=== PATIENT | male | born 1960 | race African-American/Black ===

== ENCOUNTER 2018-11-04 13:57 | Inpatient (IN) | payer OTHER ==
[2018-11-04 17:34] VITALS: BMI 22.4
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
[2018-11-04] MEDS ORDERED: ACETAMINOPHEN 325 MG TABLET (FP) PO PRN (19:56)
[2018-11-04] MEDS ORDERED: hydrOXYzine PAMOATE 50 MG CAPSULE (FP) PO PRN (19:56)
[2018-11-04] MEDS ORDERED: P-EPHED 60MG/TRIPROLIDI 2.5MG TABLET PO PRN (19:56)
[2018-11-04] MEDS ORDERED: MAGNESIUM CITRATE 300 ML BOTTLE PO PRN (19:56)
[2018-11-04] MEDS ORDERED: ONDANSETRON *ODT* 4 MG TABLET SL PRN (19:56)
[2018-11-04] MEDS ORDERED: guaiFENesin/D-METHORPHAN HB 10 ML UNIT-DOSE CUPS PO PRN (19:56)
[2018-11-04] MEDS ORDERED: LOPERAMIDE HCL 2 MG CAPSULE PO PRN (19:56)
[2018-11-04] MEDS ORDERED: chlordiazePOXIDE HCL 25 MG CAPSULE PO PRN (19:56)
[2018-11-04] MEDS ORDERED: NICOTINE POLACRILEX 2 MG GUM BC PRN (19:56)
[2018-11-04] MEDS ORDERED: MAGNESIUM HYDROX 2400MG/30ML ORAL SUSPENSION 30 ML CUP PO PRN (19:56)
[2018-11-04] MEDS ORDERED: MENTHOL/PHENOL 1 EACH UD MM PRN (19:56)
[2018-11-04] MEDS ORDERED: MAG HYDROX/AL HYDROX/SIMETH 30 ML UNIT-DOSE CUP PO PRN (19:56)
[2018-11-04] MEDS ORDERED: PATIENT'S OWN MEDICATION (NON-FORMULARY) (Gabapentin [Neurontin] 600 MG) PO SCH (20:00)
[2018-11-04] MEDS ORDERED: PATIENT'S OWN MEDICATION (NON-FORMULARY) (Ranitidine Hcl [Ranitidine Hcl] 150 MG) PO SCH (22:00)
[2018-11-04] MEDS: GABAPENTIN 300 MG CAPSULE (FP) PO SCH (23:00)
[2018-11-04] MEDS: RANITIDINE HCL 150 MG TABLET (FP) PO SCH (23:00)
[2018-11-04] MEDS: chlordiazePOXIDE HCL 25 MG CAPSULE PO SCH (23:00)
[2018-11-04] MEDS: THIAMINE HCL 100 MG TABLET (FP) PO SCH (23:01)
[2018-11-05] MEDS: chlordiazePOXIDE HCL 25 MG CAPSULE PO SCH ×4 (05:59→22:16)
[2018-11-05] MEDS: GABAPENTIN 300 MG CAPSULE (FP) PO SCH ×3 (06:22→22:16)
[2018-11-05] MEDS: metFORMIN HCL 500 MG TABLET (FP) PO SCH ×2 (06:23→17:52)
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
[2018-11-05] MEDS ORDERED: PATIENT'S OWN MEDICATION (NON-FORMULARY) (Ramipril [Ramipril] 10 MG) PO SCH (10:00)
[2018-11-05 10:05] LABS: HEMATOCRIT 33.8 % (35.4-49); HEMOGLOBIN 10.7 GM/dL (11.7-16.9); MCH 33.7 pg (25.7-33.7); MCHC 31.6 g/dl (32.0-35.9); MEAN CELL VOLUME 106.4 fl (80-96); MEAN PLT VOLUME 10.8 fl (7.5-11.1); PLATELET COUNT 141 K/MM3 (134-434); RBC 3.17 M/mm3 (4.00-5.60); RDW 13.9 % (11.9-15.9); WHITE BLOOD COUNT 6.9 K/mm3 (4.0-10.0)
[2018-11-05] MEDS: CITALOPRAM HYDROBROMIDE 20 MG TABLET (FP) PO SCH (10:28)
[2018-11-05] MEDS: RANITIDINE HCL 150 MG TABLET (FP) PO SCH ×2 (10:28→22:16)
[2018-11-05] MEDS: ASPIRIN 81 MG CHEWABLE TABLETS PO SCH (10:28)
[2018-11-05] MEDS: PRENATAL VITAMINS W/ FOLIC ACID TABLET (FP) PO SCH (10:30)
[2018-11-05] MEDS: NICOTINE 14 MG/24 HOURS TOPICAL PATCH TD SCH (10:31)
[2018-11-05 11:07] LABS: ALBUMIN 2.6 g/dl (3.4-5.0); ALK PHOS 502 U/L (45-117); ANION GAP 10 MMOL/L (8-16); BILIRUBIN,TOTAL 5.7 mg/dL (0.2-1); BLOOD UREA NITROGEN 15 mg/dL (7-18); CALCIUM 8.4 mg/dL (8.5-10.1); CHLORIDE 100 mmol/L (98-107); CO2 26 mmol/L (21-32); CREATININE 1.1 mg/dL (0.55-1.3); GLUCOSE,RANDOM 119 mg/dL (74-106); POTASSIUM 4.2 mmol/L (3.5-5.1); SGOT/AST 425 U/L (15-37); SGPT/ALT 255 U/L (13-61); SODIUM 136 mmol/L (136-145); TOT PROT 8.7 g/dl (6.4-8.2)
[2018-11-05] MEDS: RAMIPRIL 5 MG CAPSULE (FP) PO SCH (11:20)
--- NOTE | 2018-11-05 11:22 | PN ---
S CIWA - CIWA Score Nausea/Vomitin-No Nausea/No Vomiting Muscle Tremors: 4-Moderate,w/Arms Extend Anxiety: 3 Agitation: 4-Moderately Restless Paroxysmal Sweats: 3 Orientation: 0-Oriented Tacttile Disturbances: 0-None Auditory Disturbances: 0-None Visual Disturbances: 0-None Headache: 1-Very Mild CIWA-Ar Total Score: 15 BHS Progress Note (SOAP) Subjective: nausea sweats chills last night body aches some shakes Objective: 11/05/18 11:20 Vital Signs Temperature 100.0 F H 11/05/18 09:07 Pulse Rate 96 H 11/05/18 09:07 Respiratory Rate 16 11/05/18 09:07 Blood Pressure 134/72 11/05/18 09:07 O2 Sat by Pulse Oximetry (%) Laboratory Tests 11/04/18 11/05/18 11/05/18 17:29 06:02 07:00 WBC 6.9 RBC 3.17 L Hgb 10.7 L Hct 33.8 L MCV 106.4 H MCH 33.7 MCHC 31.6 L RDW 13.9 Plt Count 141 MPV 10.8 Sodium Potassium Chloride Carbon Dioxide Anion Gap BUN Creatinine Creat Clearance w eGFR POC Glucometer 175 164 Random Glucose Calcium Total Bilirubin AST ALT Alkaline Phosphatase Total Protein Albumin 11/05/18 07:00 WBC RBC Hgb Hct MCV MCH MCHC RDW Plt Count MPV Sodium 136 Potassium 4.2 Chloride 100 Carbon Dioxide 26 Anion Gap 10 BUN 15 Creatinine 1.1 Creat Clearance w eGFR > 60 POC Glucometer Random Glucose 119 H Calcium 8.4 L Total Bilirubin 5.7 H AST 425 H ALT 255 H Alkaline Phosphatase 502 H Total Protein 8.7 H Albumin 2.6 L labs noted elevated ast/alt; tylenol d/c repeat labs for Friday ordered Assessment: 11/05/18 11:21 withdrawal sx Plan: continue detox increase fluids tylenol d/c labs repeated ordered jeff lima
[2018-11-05] MEDS: MELATONIN 5 MG TABLETS PO PRN (22:16)
[2018-11-05] MEDS: QUEtiapine FUMARATE 50 MG TABLET PO SCH (22:16)
[2018-11-05] MEDS: THIAMINE HCL 100 MG TABLET (FP) PO SCH (22:16)
[2018-11-05] MEDS: IBUPROFEN 400 MG TABLET (FP) PO PRN (22:18)
[2018-11-06] MEDS: chlordiazePOXIDE HCL 25 MG CAPSULE PO SCH ×3 (05:26→18:36)
[2018-11-06] MEDS: GABAPENTIN 300 MG CAPSULE (FP) PO SCH ×3 (05:26→22:12)
[2018-11-06] MEDS: metFORMIN HCL 500 MG TABLET (FP) PO SCH ×2 (07:21→18:36)
[2018-11-06] MEDS: PRENATAL VITAMINS W/ FOLIC ACID TABLET (FP) PO SCH (10:13)
[2018-11-06] MEDS: RAMIPRIL 5 MG CAPSULE (FP) PO SCH (10:14)
[2018-11-06] MEDS: RANITIDINE HCL 150 MG TABLET (FP) PO SCH ×2 (10:14→22:12)
[2018-11-06] MEDS: NICOTINE 14 MG/24 HOURS TOPICAL PATCH TD SCH (10:14)
[2018-11-06] MEDS: CITALOPRAM HYDROBROMIDE 20 MG TABLET (FP) PO SCH (10:14)
[2018-11-06] MEDS: ASPIRIN 81 MG CHEWABLE TABLETS PO SCH (10:14)
--- NOTE | 2018-11-06 12:27 | PN ---
[facility] CIWA - CIWA Score Nausea/Vomitin-No Nausea/No Vomiting Muscle Tremors: 3 Anxiety: 3 Agitation: 3 Paroxysmal Sweats: 3 Orientation: 0-Oriented Tacttile Disturbances: 0-None Auditory Disturbances: 0-None Visual Disturbances: 0-None Headache: 0-None Present CIWA-Ar Total Score: 12 BHS Progress Note (SOAP) Subjective: sweats irritable muscle achy Objective: 11/06/18 12:26 Vital Signs Temperature 99.3 F 11/06/18 11:42 Pulse Rate 93 H 11/06/18 11:42 Respiratory Rate 18 11/06/18 11:42 Blood Pressure 132/72 11/06/18 11:42 O2 Sat by Pulse Oximetry (%) Laboratory Tests 11/04/18 11/05/18 11/05/18 17:29 06:02 07:00 WBC RBC Hgb Hct MCV MCH MCHC RDW Plt Count MPV Sodium Potassium Chloride Carbon Dioxide Anion Gap BUN Creatinine Creat Clearance w eGFR POC Glucometer 175 164 Random Glucose Calcium Total Bilirubin AST ALT Alkaline Phosphatase Total Protein Albumin RPR Titer HIV 1&2 Antibody Screen Negative HIV P24 Antigen Negative 11/05/18 11/05/18 11/05/18 07:00 07:00 07:00 WBC 6.9 RBC 3.17 L Hgb 10.7 L Hct 33.8 L MCV 106.4 H MCH 33.7 MCHC 31.6 L RDW 13.9 Plt Count 141 MPV 10.8 Sodium 136 Potassium 4.2 Chloride 100 Carbon Dioxide 26 Anion Gap 10 BUN 15 Creatinine 1.1 Creat Clearance w eGFR > 60 POC Glucometer Random Glucose 119 H Calcium 8.4 L Total Bilirubin 5.7 H AST 425 H ALT 255 H Alkaline Phosphatase 502 H Total Protein 8.7 H Albumin 2.6 L RPR Titer Nonreactive HIV 1&2 Antibody Screen HIV P24 Antigen 11/05/18 11/06/18 16:59 05:25 WBC RBC Hgb Hct MCV MCH MCHC RDW Plt Count MPV Sodium Potassium Chloride Carbon Dioxide Anion Gap BUN Creatinine Creat Clearance w eGFR POC Glucometer 197 132 Random Glucose Calcium Total Bilirubin AST ALT Alkaline Phosphatase Total Protein Albumin RPR Titer HIV 1&2 Antibody Screen HIV P24 Antigen aaox3 ambulating no acute distress Assessment: 11/06/18 12:26 withdrawal sx Plan: continue detox increase fluids
[2018-11-06] MEDS: chlordiazePOXIDE 5 MG CAPSULE PO SCH (22:11)
[2018-11-06] MEDS: QUEtiapine FUMARATE 50 MG TABLET PO SCH (22:11)
[2018-11-06] MEDS: THIAMINE HCL 100 MG TABLET (FP) PO SCH (22:13)
[2018-11-07] MEDS: GABAPENTIN 300 MG CAPSULE (FP) PO SCH ×3 (05:44→22:22)
[2018-11-07] MEDS: chlordiazePOXIDE 5 MG CAPSULE PO SCH ×3 (05:44→17:18)
[2018-11-07] MEDS: metFORMIN HCL 500 MG TABLET (FP) PO SCH ×2 (07:00→17:18)
[2018-11-07] MEDS: IBUPROFEN 400 MG TABLET (FP) PO PRN (09:00)
[2018-11-07] MEDS: RANITIDINE HCL 150 MG TABLET (FP) PO SCH ×2 (10:25→22:22)
[2018-11-07] MEDS: ASPIRIN 81 MG CHEWABLE TABLETS PO SCH (10:25)
[2018-11-07] MEDS: RAMIPRIL 5 MG CAPSULE (FP) PO SCH (10:25)
[2018-11-07] MEDS: CITALOPRAM HYDROBROMIDE 20 MG TABLET (FP) PO SCH (10:27)
[2018-11-07] MEDS: PRENATAL VITAMINS W/ FOLIC ACID TABLET (FP) PO SCH (10:27)
[2018-11-07] MEDS: NICOTINE 14 MG/24 HOURS TOPICAL PATCH TD SCH (10:28)
[2018-11-07 11:53] LABS: ALBUMIN 1.9 g/dl (3.4-5.0); ALK PHOS 498 U/L (45-117); ANION GAP 8 MMOL/L (8-16); BILIRUBIN,TOTAL 4.7 mg/dL (0.2-1); BLOOD UREA NITROGEN 13 mg/dL (7-18); CALCIUM 7.8 mg/dL (8.5-10.1); CHLORIDE 102 mmol/L (98-107); CO2 26 mmol/L (21-32); CREATININE 1.1 mg/dL (0.55-1.3); GLUCOSE,RANDOM 218 mg/dL (74-106); SGOT/AST 399 U/L (15-37); SGPT/ALT 292 U/L (13-61); SODIUM 136 mmol/L (136-145)
--- NOTE | 2018-11-07 14:10 | PN ---
BHS Progress Note (SOAP) Subjective: Interrupted sleep, fatigue, tremors Objective: 11/07/18 14:09 Vital Signs 11/07/18 11/07/18 07:26 09:31 Temperature 99.3 F 101.5 F H Pulse Rate 110 H 116 H Respiratory 20 16 Rate Blood Pressure 139/72 125/74 Laboratory Last Values WBC 6.9 K/mm3 (4.0-10.0) 11/05/18 07:00 RBC 3.17 M/mm3 (4.00-5.60) L 11/05/18 07:00 Hgb 10.7 GM/dL (11.7-16.9) L 11/05/18 07:00 Hct 33.8 % (35.4-49) L 11/05/18 07:00 MCV 106.4 fl (80-96) H 11/05/18 07:00 MCH 33.7 pg (25.7-33.7) 11/05/18 07:00 MCHC 31.6 g/dl (32.0-35.9) L 11/05/18 07:00 RDW 13.9 % (11.9-15.9) 11/05/18 07:00 Plt Count 141 K/MM3 (134-434) 11/05/18 07:00 MPV 10.8 fl (7.5-11.1) 11/05/18 07:00 Sodium 136 mmol/L (136-145) 11/07/18 07:50 Potassium 4.0 mmol/L (3.5-5.1) 11/07/18 07:50 Chloride 102 mmol/L (98-107) 11/07/18 07:50 Carbon Dioxide 26 mmol/L (21-32) 11/07/18 07:50 Anion Gap 8 MMOL/L (8-16) 11/07/18 07:50 BUN 13 mg/dL (7-18) 11/07/18 07:50 Creatinine 1.1 mg/dL (0.55-1.3) 11/07/18 07:50 Creat Clearance w eGFR > 60 (>60) 11/07/18 07:50 POC Glucometer 163 UNITS (80-120) 11/07/18 05:43 Random Glucose 218 mg/dL (74-106) H 11/07/18 07:50 Calcium 7.8 mg/dL (8.5-10.1) L 11/07/18 07:50 Total Bilirubin 4.7 mg/dL (0.2-1) H 11/07/18 07:50 AST 399 U/L (15-37) H 11/07/18 07:50 ALT 292 U/L (13-61) H 11/07/18 07:50 Alkaline Phosphatase 498 U/L (45-117) H 11/07/18 07:50 Total Protein 7.0 g/dl (6.4-8.2) 11/07/18 07:50 Albumin 1.9 g/dl (3.4-5.0) L 11/07/18 07:50 RPR Titer Nonreactive (NONREACTIVE) 11/05/18 07:00 HIV 1&2 Antibody Screen Negative 11/05/18 07:00 HIV P24 Antigen Negative 11/05/18 07:00 Labs noted-elevated liver enzymes r/t hep C status Assessment: 11/07/18 14:10 Withdrawal sx Plan: Continue detox
[2018-11-07] MEDS: QUEtiapine FUMARATE 50 MG TABLET PO SCH (22:22)
[2018-11-07] MEDS: THIAMINE HCL 100 MG TABLET (FP) PO SCH (22:22)
[2018-11-07] MEDS: chlordiazePOXIDE HCL 10 MG CAPSULE PO SCH (22:22)
[2018-11-07] MEDS: MELATONIN 5 MG TABLETS PO PRN (22:22)
[2018-11-08] MEDS: GABAPENTIN 300 MG CAPSULE (FP) PO SCH (06:26)
[2018-11-08] MEDS: chlordiazePOXIDE HCL 10 MG CAPSULE PO SCH ×2 (06:27→10:12)
[2018-11-08] MEDS: IBUPROFEN 400 MG TABLET (FP) PO PRN (06:27)
[2018-11-08] MEDS: metFORMIN HCL 500 MG TABLET (FP) PO SCH (06:27)
[2018-11-08 09:59] VITALS: BP 107/57; PULSE 119; TEMP 97.1
[2018-11-08] MEDS: PRENATAL VITAMINS W/ FOLIC ACID TABLET (FP) PO SCH (10:41)
[2018-11-08] MEDS: ASPIRIN 81 MG CHEWABLE TABLETS PO SCH (10:41)
[2018-11-08] MEDS: CITALOPRAM HYDROBROMIDE 20 MG TABLET (FP) PO SCH (10:41)
[2018-11-08] MEDS: RAMIPRIL 5 MG CAPSULE (FP) PO SCH (10:41)
[2018-11-08] MEDS: RANITIDINE HCL 150 MG TABLET (FP) PO SCH (10:41)
[2018-11-08] MEDS: NICOTINE 14 MG/24 HOURS TOPICAL PATCH TD SCH (10:42)
--- NOTE | 2018-11-08 16:36 | DS ---
[facility] Detox Discharge Summary Admission Date: 11/04/18 Discharge Date: 11/08/18 - History Present History: Alcohol Dependence - Physical Exam Results Vital Signs: Vital Signs Temperature 97.1 F L 11/08/18 11:30 Pulse Rate 119 H 11/08/18 11:30 Respiratory Rate 16 11/08/18 11:30 Blood Pressure 107/57 L 11/08/18 11:30 O2 Sat by Pulse Oximetry (%) Pertinent Admission Physical Exam Findings: alcohol withdrawal sx Vital Signs Temperature 97.1 F L 11/08/18 11:30 Pulse Rate 119 H 11/08/18 11:30 Respiratory Rate 16 11/08/18 11:30 Blood Pressure 107/57 L 11/08/18 11:30 O2 Sat by Pulse Oximetry (%) Laboratory Last Values WBC 6.9 K/mm3 (4.0-10.0) 11/05/18 07:00 RBC 3.17 M/mm3 (4.00-5.60) L 11/05/18 07:00 Hgb 10.7 GM/dL (11.7-16.9) L 11/05/18 07:00 Hct 33.8 % (35.4-49) L 11/05/18 07:00 MCV 106.4 fl (80-96) H 11/05/18 07:00 MCH 33.7 pg (25.7-33.7) 11/05/18 07:00 MCHC 31.6 g/dl (32.0-35.9) L 11/05/18 07:00 RDW 13.9 % (11.9-15.9) 11/05/18 07:00 Plt Count 141 K/MM3 (134-434) 11/05/18 07:00 MPV 10.8 fl (7.5-11.1) 11/05/18 07:00 Sodium 136 mmol/L (136-145) 11/07/18 07:50 Potassium 4.0 mmol/L (3.5-5.1) 11/07/18 07:50 Chloride 102 mmol/L (98-107) 11/07/18 07:50 Carbon Dioxide 26 mmol/L (21-32) 11/07/18 07:50 Anion Gap 8 MMOL/L (8-16) 11/07/18 07:50 BUN 13 mg/dL (7-18) 11/07/18 07:50 Creatinine 1.1 mg/dL (0.55-1.3) 11/07/18 07:50 Creat Clearance w eGFR > 60 (>60) 11/07/18 07:50 POC Glucometer 209 UNITS (80-120) 11/08/18 06:26 Random Glucose 218 mg/dL (74-106) H 11/07/18 07:50 Calcium 7.8 mg/dL (8.5-10.1) L 11/07/18 07:50 Total Bilirubin 4.7 mg/dL (0.2-1) H 11/07/18 07:50 AST 399 U/L (15-37) H 11/07/18 07:50 ALT 292 U/L (13-61) H 11/07/18 07:50 Alkaline Phosphatase 498 U/L (45-117) H 11/07/18 07:50 Total Protein 7.0 g/dl (6.4-8.2) 11/07/18 07:50 Albumin 1.9 g/dl (3.4-5.0) L 11/07/18 07:50 RPR Titer Nonreactive (NONREACTIVE) 11/05/18 07:00 HIV 1&2 Antibody Screen Negative 11/05/18 07:00 HIV P24 Antigen Negative 11/05/18 07:00 lab noted low Ca++ elevation of liver enzyme - Treatment Hospital Course: Detox Protocol Followed, Detoxed Safely, Responded well, Discharged Condition Good, Rehab Referral Accepted Patient has Accepted [facility] Referral [facility] - Medication Discharge Medications: Ambulatory Orders Aspirin [ASA -] 81 mg PO DAILY #30 tab.chew 10/04/16 Gabapentin [Neurontin] 600 mg PO Q8H #90 tablet 10/04/16 Ranitidine HCl 150 mg PO BID #60 capsule 10/04/16 Magnesium Oxide [Mag-Ox -] 400 mg PO DAILY 11/04/18 Ramipril 10 mg PO DAILY 11/04/18 Citalopram Hydrobromide [Celexa -] 20 mg PO DAILY #30 tablet 11/05/18 Quetiapine Fumarate [Seroquel -] 50 mg PO HS #30 tablet 11/05/18 Metformin HCl [Glucophage] 500 mg PO BID #60 tablet 12/09/18 - Diagnosis (1) Alcohol dependence with withdrawal Status: Acute Qualifiers: Complication of substance-induced condition: uncomplicated Qualified Code(s ): F10.230 - Alcohol dependence with withdrawal, uncomplicated (2) GERD (gastroesophageal reflux disease) Status: Chronic Qualifiers: Esophagitis presence: without esophagitis Qualified Code(s): K21.9 - Gastro -esophageal reflux disease without esophagitis (3) HTN (hypertension) Status: Chronic Qualifiers: Hypertension type: essential hypertension Qualified Code(s): I10 - Essential (primary) hypertension (4) Hepatitis C Status: Chronic Qualifiers: Viral hepatitis chronicity: chronic Hepatic coma status: without hepatic coma Qualified Code(s): B18.2 - Chronic viral hepatitis C (5) Nicotine dependence Status: Acute Qualifiers: Nicotine product type: cigarettes Substance use status: in withdrawal Qualified Code(s): F17.213 - Nicotine dependence, cigarettes, with withdrawal (6) Substance induced mood disorder Status: Suspected - AMA Did Patient Leave Against Medical Advice: No
== END 2018-11-08 10:51 | disposition home or self-care (01) | DRG 774 ==
LOC: YASAS 13:57 → Y6N 18:49
PROC: HZ2ZZZZ Detoxification Services for Substance Abuse Treatment (ICD-10-PCS; principal; 2018-11-04)
DX: F10.230 Alcohol dependence with withdrawal, uncomplicated (principal); F14.20 Cocaine dependence, uncomplicated; F17.213 Nicotine dependence, cigarettes, with withdrawal; F31.30 Bipolar disorder, current episode depressed, mild or moderate severity, unspecified; F19.24 Other psychoactive substance dependence with psychoactive substance-induced mood disorder; I10 Essential (primary) hypertension; K21.9 Gastro-esophageal reflux disease without esophagitis; E11.9 Type 2 diabetes mellitus without complications; Z79.84 Long term (current) use of oral hypoglycemic drugs; R74.8 Abnormal levels of other serum enzymes; B15.9 Hepatitis A without hepatic coma; Z91.89 Other specified personal risk factors, not elsewhere classified; R76.8 Other specified abnormal immunological findings in serum; B18.2 Chronic viral hepatitis C
CPT/HCPCS: 36415; 80053; 82962; 85027; 86593; 87389